=== PATIENT | female | born 1995 | race Hispanic/Latino ===

== ENCOUNTER 2022-11-21 20:43 | Emergency (ER) | payer OTHER, SELFPAY ==
[2022-11-21] VITALS (18 sets, daily range): BP systolic 104–116; BP diastolic 65–80; PULSE 60–84; RESP 10–20; TEMP 36.7; O2SAT 100
[2022-11-21] MEDS: MECLIZINE HCL 25 MG TABLET PO (22:44)
[2022-11-22] VITALS (14 sets, daily range): BP systolic 105–121; BP diastolic 69–82; PULSE 60–79; RESP 9–17; O2SAT 100
[2022-11-22] MEDS: SODIUM CHLORIDE 0.9% IV 1,000 ML 999 ML IV CONT (00:15)
[2022-11-22] MEDS: diazePAM INJ (*CRX) 10 MG/2 ML SYRINGE 5 MG IV PUSH (00:16)
--- NOTE | 2022-11-22 01:10 | ED.DIZZY ---
HPI - Dizziness General Chief Complaint: Dizziness Stated Complaint: dizziness Time Seen by Provider: 11/21/22 22:26 History of Present Illness HPI Narrative: Patient is a 27-year-old female who presents ER with spinning dizziness. Associate with nausea. It is worse with turning her head and going from lying to sitting. Has some dullness in her ear on the left side. No sinus congestion or sore throat. No fevers or chills or sweats. No numbness or weakness in arm or leg. Patient reports she recently flew here from [place] and had some pain in her ear. Related Data Home Medications Medication Instructions Recorded Confirmed levothyroxine 50 mcg DAILY 11/21/22 Allergies Allergy/AdvReac Type Severity Reaction Status Date / Time No Known Allergies Allergy Verified 11/21/22 22:28 Review of Systems Review of Systems: All systems reviewed & are unremarkable except as noted in HPI and below Constitutional: Constitutional: Denies chills and Denies fever(s) ENT: Reports dizziness, Denies nasal congestion and Denies sore throat Comments: Fullness in the left ear Cardiovascular: Cardiovascular: Denies chest pain and Denies rapid heart rate Neurologic: Reports dizziness, Denies syncope, Denies focal weakness and Denies numbness PMFSH Past Medical History Medical History (Updated 11/22/22 @ 01:38 by Dominik Bae MD) Hypothyroidism Surgical History Surgical History (Updated 11/22/22 @ 01:14 by Dominik Bae MD) No history of previous surgery Social History Social History (Updated 11/22/22 @ 01:14 by Dominik Bae MD) Smoking status: Never smoker Exam Narrative: GENERAL: Well-appearing, well-nourished, and in no acute distress. HEAD: Normocephalic, atraumatic. EYES: PERRL and EOMI. ENT: Mucous membranes moist. TMs normal bilaterally. Eustachian tubes pop with manipulation of external ear. CHEST: Clear to auscultation. No respiratory distress. HEART: Regular rate and rhythm. Normal peripheral pulses. ABDOMEN: Soft, nontender, nondistended. EXTREMITIES: Normal range of motion. No edema. NEURO: Reproducible dizziness with positional change and head turning. Alert and oriented x3. PSYCH: Normal mood and affect. Course Course Emergency Course: Patient feeling improved after meclizine/fluids/Valium. Still has some dizziness but not nearly as intense. Discharge home with meclizine. Discussed diagnosis and treatment plan and patient verbalized understanding. Vital Signs Vital signs: Vital Signs Temperature 98.1 F 11/21/22 21:05 Pulse Rate 67 11/21/22 21:05 Respiratory Rate 16 11/21/22 21:05 Blood Pressure 104/71 11/21/22 21:05 Pulse Oximetry 100 11/21/22 21:05 Oxygen Delivery Room Air 11/21/22 21:05 Temperature 98.1 F 11/21/22 21:05 Pulse Rate 67 11/21/22 23:46 Respiratory Rate 14 11/21/22 23:46 Blood Pressure 116/78 11/21/22 23:46 Pulse Oximetry 100 11/21/22 23:46 Oxygen Delivery Room Air 11/21/22 21:05 Discharge Plan Discharge Clinical Impression: Peripheral vertigo Patient Disposition: Home, Self-Care Condition: Stable Instructions: Vertigo (ED) Additional Instructions: Return the ER if you have fever over 100.4 ?F, you have focal weakness in arm or leg, you have the inability to walk, or you have additional concerns. Prescriptions: New meclizine 12.5 mg tablet 12.5 mg PO TID PRN (Reason: motion sickness) Qty: 14 0RF No Action levothyroxine 50 mcg DAILY Follow-up/Referrals: Memo Alvarado MD [Physician] - PHYSICIAN NOT ON STAFF,NONSTAFF [Primary Care Provider] -
== END 2022-11-22 01:55 | disposition home or self-care (01) ==
PROVIDERS: Emergency Provider Emergency Medicine
DX: H81.399 Other peripheral vertigo, unspecified ear (principal); E03.9 Hypothyroidism, unspecified
CPT/HCPCS: 96361; 96374; 99284; A9270; J3360; J7030